=== PATIENT | male | born 1965 | race Caucasian/White ===

== ENCOUNTER 2017-09-09 23:47 | Emergency (ER) | payer BC ==
[2017-09-10 00:27] LABS: #Basophils 0.1 thou/uL (0.0-0.2); #Eosinphils 0.3 thou/uL (0.0-0.7); #Monocytes 0.6 thou/uL (0.11-0.59); #Neutrophils 4.4 thou/uL (1.40-6.50); %Basophils 0.9 % (0.0-1.0); %Eosinophils 3.3 % (0.0-10.0); %Lymphocytes 35.8 % (21.0-51.0); %Monocytes 7.2 % (0.0-10.0); %Neutrophils 52.7 % (42.0-75.0); Mean Corpuscular HGB CONC 34.1 g/dL (32.0-36.0); Mean Corpuscular Hemoglobin 30.4 pg (27.0-31.0); Mean Platelet Volume 7.2 fL (7.4-10.4); Platelet Count 219 thou/uL (130-400); RBC Distribution Width 11.5 % (11.5-14.5); Red Blood Cell (RBC) Count 5.27 mill/uL (4.70-6.10); White Blood Cell (WBC) Count 8.3 thou/uL (4.8-10.8)
[2017-09-10 00:35] LABS: INR-International Normal Ratio 0.9; PTT 28.4 SEC (22.9-36.1); Prothrombin Time 12.2 SEC (12.0-14.7)
[2017-09-10 00:44] LABS: ALT (SGPT) 38 U/L (8-55); AST (SGOT) 21 U/L (5-34); Albumin 4.2 g/dL (3.5-5.0); Alkaline Phosphatase 64 U/L (40-150); Anion Gap 14 mmol/L (10-20); BUN (Urea Nitrogen) 21 mg/dL (8.4-25.7); Bilirubin, Total 0.6 mg/dL (0.2-1.2); Calc. Creatinine Clearance 0 mL/min (70-130); Calcium 9.5 mg/dL (7.8-10.44); Carbon Dioxide 25 mmol/L (22-29); Chloride 104 mmol/L (98-107); Estimated GFR-MDRD 76; Globulin 3.1 g/dL (2.4-3.5); Glucose 103 mg/dL (70-105); Potassium 3.7 mmol/L (3.5-5.1); Protein, Total 7.3 g/dL (6.0-8.3); Sodium 139 mmol/L (136-145)
[2017-09-10] MEDS ORDERED: Lisinopril 5 MG TAB ONE ×2 (00:47→00:48)
[2017-09-10 00:48] LABS: CKMB 0.9 ng/mL (0-6.6); Troponin I Less than 0.010 ng/mL (< 0.028)
[2017-09-10 00:52] LABS: Bilirubin Negative (Negative); Blood, Urine Small (Negative); Clarity Clear (Clear); Glucose, Urine (Dipstick) Negative (Negative); Leukocyte Negative (Negative); Nitrite Negative (Negative); Protein, Urine (Dipstick) Negative (Neg-Trace); Urobilinogen 0.2 mg/dL (0.2-1.0); pH, Urine 5.5 (5.0-9.0)
[2017-09-10 00:55] LABS: Bacteria/HPF None Seen HPF (None Seen); RBC/HPF 0-3 HPF (0-3); Squamous Epithelial None Seen HPF (0-3); WBC/HPF None Seen HPF (0-3)
[2017-09-10] MEDS ORDERED: diphenhydrAMINE 25 MG CAP ONE (00:59)
[2017-09-10] MEDS ORDERED: Prochlorperazine 10 MG/2 ML VIAL ONE (01:01)
--- NOTE | 2017-09-10 07:02 | CT ---
PRELIMINARY REPORT/[facility]/EMERGENCY AFTER HOURS PROCEDURE: EXAM: CT Head Without Intravenous Contrast CLINICAL HISTORY: 52 years old, male; Pain; Headache TECHNIQUE: Axial computed tomography images of the head/brain without intravenous contrast. All CT scans at [facility] facility use one or more dose reduction techniques, viz.: automated exposure control; ma/kV adjust ment per patient size (including targeted exams where dose is matched to indication; i.e. head); or iterative reconstruction technique. COMPARISON: No relevant prior studies available. FINDINGS: Brain: No hemorrhage. No significant white matter disease. No edema. Ventricles: Unremarkable. No ventriculomegaly. Bones/joints: Unremarkable. No acute fracture. Soft tissues: Unremarkable. Sinuses: Unremarkable as visualized. No acute sinusitis. Mastoid air cells: Unremarkable as visualized. No mastoid effusion. IMPRESSION: No acute intracranial abnormality. Thank you for allowing us to participate in the care of your patient. Dictated and Authenticated by: Rubi Nielson MD 09/10/2017 12:43 AM Central Time ([place] \T\ [place]) FINAL REPORT CT OF THE BRAIN WITHOUT CONTRAST 09/10/2017 A non-contrast CT was done for evaluation of headache. The ventricles are normal in size with no sh ift. No intracranial bleeding, mass, edema, or sign of stroke was found. Calvarium appears normal. There is some mucosal thickening in ethmoid air cells bilaterally. The m astoid air cells and sphenoid sinus are clear. The visible portions of the maxillary sinuses were c lear. The frontal sinus is underdeveloped. IMPRESSION: 1. No acute intracranial findings. 2. Mucosal thickening in ethmoid sinuses bilaterally. Report in substantial agreement with preliminary reading by [facility] except for comment on sinuses. Code T. POS: HOME
== END 2017-09-10 01:40 | disposition home or self-care (01) ==
LOC: BURERS 23:47
DX: I10 Essential (primary) hypertension (principal); E03.9 Hypothyroidism, unspecified; G47.33 Obstructive sleep apnea (adult) (pediatric); F32.9 Major depressive disorder, single episode, unspecified; Z79.899 Other long term (current) drug therapy
CPT/HCPCS: 70450; 80053; 81003; 81015; 82553; 84443; 84484; 85025; 85610; 85730; 94760; J0780